=== PATIENT | male | born 1930 | race Caucasian/White ===

== ENCOUNTER 2016-04-23 18:45 | Emergency (ER) | payer MEDICARE, OTHER ==
[2016-04-23 18:46] VITALS: BMI 23.6
[2016-04-23 19:06] VITALS: TEMP 98.2
[2016-04-23] MEDS ORDERED: Albuterol/Ipratropium Neb 3 ML NEB NEB ONE ×2 (19:23→22:20)
[2016-04-23] MEDS ORDERED: METHYLPREDNISOLONE 125 MG/2 ML VIAL IV ONE (19:24)
[2016-04-23 19:53] LABS: AUTOMATED BASOPHIL 0.8 % (0-2); AUTOMATED EOSINOPHIL 4.3 % (0-5); AUTOMATED LYMPH 8.7 % (17-44); AUTOMATED MONOCYTE 10.2 % (3-10); MPV 8.3 fL (7.4-10.4)
[2016-04-23 19:57] LABS: BLOOD UREA NITROGEN 24 MG/DL (9-20); CALCIUM 9.1 MG/DL (8.4-10.2); CALCULATED OSMOLALITY 274 MOs/Kg (270-290); CHLORIDE 100 mEq/L (98-107); GLUCOSE 131 MG/DL (70-99); SODIUM LEVEL 139 mEq/L (137-146)
[2016-04-23 19:58] LABS: TOTAL PROTEIN 7.2 G/DL (6.3-8.2)
--- NOTE | 2016-04-23 20:12 | EDPRACDOC ---
- History of Present Illness HPI: NOTE SEEN AND EXAMINED; WEARS OXYGEN AT NIGHT; FEELS BETTER AFTER NEB <Jann Morgan - Last Filed: 04/23/16 21:59> - General Information Information Source: Patient Mode Of Arrival: Ambulance - History of Present Illness HPI: C/o sob, wheezing [employer]. Pt cannot answer any questions spoken or written. NO hx of sx available. Shortness of Breath: Mild <Donnie Conway - Last Filed: 04/24/16 06:38> - General Information Chief Complaint: Dyspnea/Resp distress Stated Complaint: BREATHING PROBLEMS Time Seen by Provider: 04/23/16 19:50 Home Medications: Home Medications Amlodipine [Norvasc] 10 mg PO DAILY 02/17/13 Citalopram (anti-depressant) [Celexa] 10 mg PO HS 03/10/14 Multivitamin [Multiple Vitamins] 1 tab PO DAILY 04/06/14 Omeprazole [Prilosec] 40 mg PO DAILY 04/06/14 Albuterol/Ipratropium Neb [Duoneb] 3 ml NEB QID 06/16/14 Aspirin [Aspirin EC] 81 mg PO DAILY #90 tablet. 06/23/14 Guaifenesin [Mucinex] 1,200 mg PO BID #30 tbmp.12hr 06/23/14 Acetaminophen [Mapap] 1,000 mg PO Q4H PRN 03/25/15 Albuterol/Ipratropium Neb [Duoneb] 3 ml NEB Q2H PRN 03/25/15 Aspirin (OrangeEnteric Coated) [Ecotrin] 325 mg PO . DIRECTED PRN 03/25/15 Dimethicone/Zinc Oxide [Mag Protect Cream] 1 raulito TOP Q2H PRN 03/25/15 Guaifenesin [Q-Tussin] 10 ml PO Q6H PRN 03/25/15 Hydrocortisone/Aloe Vera [Hydrocortisone-Aloe 0.5% Cream] 1 raulito TOP Q6H PRN 08/04 Loperamide HCl [Imodium] 2 mg PO Q6H PRN 03/25/15 Magnesium Hydroxide [Milk of Magnesia] 30 ml PO DAILY PRN 03/25/15 Magnesium Hydroxide/Al Hydrox [Mylanta Liquid] 30 ml PO Q6H PRN 03/25/15 Montelukast Sodium [Singulair] 10 mg PO QHS 03/25/15 Neomy Sulf/Bacitrac Zn/Poly [Triple Antibiotic Ointment] 1 raulito TP Q12H PRN 03/25 Fluticasone/Vilanterol [Breo Ellipta 200-25 Mcg INH] 1 puff INH DAILY 12/07/15 Loratadine [Claritin] 10 mg PO DAILY 12/07/15 Nystatin 2 gm TOP BID PRN 04/23/16 Prednisone [Deltasone, Orasone] 40 mg PO DAILY 5 Days 04/23/16 Allergies/Adverse Reactions: Allergies Allergy/AdvReac Type Severity Reaction Status Date / Time No Known Allergies Allergy Verified 03/25/15 11:44 - Treatment Prior to ED Arrival Reported Medications/Treatment [employer] Meds/Treatments Given Neb Treatment(Albuterol) EMS Treatment ALS,EKG <Jann Morgan - Last Filed: 04/23/16 21:59> - Treatment Prior to ED Arrival Reported Medications/Treatment [employer] Meds/Treatments Given Neb Treatment(Albuterol) EMS Treatment ALS,EKG <Donnie Conway - Last Filed: 04/24/16 06:38> ED Past Medical History - History Reviewed Yes Nurses notes reviewed and agree except as marked - Patient Medical History Neurological History: Reports: Cerebrovascular Accident, Dementia. Denies: Seizures, Migraine Cardiac History: Reports: Hypertension. Denies: Coronary Artery Disease, Atrial Fibrillation, Congestive Heart Failure, Heart Attack, Cardiac Catheterization, CABG, Stress Test, Hypercholesterolemia, Internal Defibrillator , Pacemaker, Cardiomyopathy, Valvular Heart Disease, Syncope Respiratory History: Reports: Aspiration Pneumonia. Denies: Asthma, COPD, Bronchitis, Asbestosis, Cough, Chronic Bronchitis, Pneumonia, Emphysema, Pulmonary Embolism GI/ History: Reports: Gastroesophageal Reflux. Denies: Renal Disease, Renal Failure, Renal (Kidney) Cancer, Kidney (Renal Surgery), Urinary Tract Infection , Kidney Stones, Liver Failure, Ulcer, IBD, Diverticulosis, Pancreatitis Musculoskeletal History: Reports: Arthritis, Osteoarthritis (Noted on C-spine CAT scan). Denies: Gout, Rheumatoid Arthritis Psychological History: Denies: Depression, Anxiety, Schizophrenia, Bipolar Disorder, Substance Use Disorder Systemic History: Denies: Cancer, Anemia, Diabetes, Hyperthyroidism, Hypothyroidism, HIV, Lupus Surgical History: Denies: CABG, Cardiac Catheterization - Family Medical History Reports: Hypertension (mother), Stroke (mother) - Social Medical History Smoking Status: Former smoker Social History: Denies: Substance Use Disorder <ManDonnie - Last Filed: 04/24/16 06:38> EDM Review of Systems - Review of Systems ROS Negative Except as Marked: Yes All systems reviewed and were negative except as marked Respiratory: Shortness of Breath <Donnie Conway - Last Filed: 04/24/16 06:38> - Physical Exam Last recorded Vital Signs: Last Vital Signs Temp 98.2 F 04/23/16 19:03 Pulse 73 04/23/16 19:03 Resp 27 H 04/23/16 19:03 BP 160/69 04/23/16 19:03 Pulse Ox 88 L 04/23/16 19:03 Oxygen Pulse Oxygen Saturation 88 O2 Device Room Air Oxygen Flow Rate Fraction of Inspired Oxygen ( FIO2) <Jann Morgan - Last Filed: 04/23/16 21:59> - Physical Exam Constitutional: Alert Oriented to: Person Last recorded Vital Signs: Last Vital Signs Temp 98.2 F 04/23/16 19:03 Pulse 73 04/23/16 19:03 Resp 27 H 04/23/16 19:03 BP 160/69 04/23/16 19:03 Pulse Ox 88 L 04/23/16 19:03 Oxygen Pulse Oxygen Saturation 88 O2 Device Room Air Oxygen Flow Rate Fraction of Inspired Oxygen ( FIO2) Exam: mild work of breathing - HEENT Head: Normal Eye Exam: negative: Conjunctival Injection, Scleral Icterus Oropharynx: negative: Drooling TMJ: Normal Neck: Normal - Respiratory/Cardiovascular Respiratory: Wheezes (bilaterally) Cardiovascular: Normal - GI Tenderness: Non tender - Musculoskeletal Back: Normal Extremities: Normal - Integumentary Skin: Normal <Donnie Conway - Last Filed: 04/24/16 06:38> ED SOB MDM - Results Result Diagrams: 04/23/16 19:30 04/23/16 19:30 Results: WBC 8.1 xk/uL (3.8-10.8) 04/23/16 19:30 RBC 5.11 xM/uL (4.70-6.10) 04/23/16 19:30 Hgb 15.0 g/dL (14.0-18.0) 04/23/16 19:30 Hct 44.5 % (42-52) 04/23/16 19:30 MCV 87 fL (80-94) 04/23/16 19:30 MCH 29.3 pg (27-32) 04/23/16 19:30 MCHC 33.7 g/dl (33-36) 04/23/16 19:30 RDW 14.1 % (11.5-14.5) 04/23/16 19:30 Plt Count 137 xk/uL (130-400) 04/23/16 19:30 MPV 8.3 fL (7.4-10.4) 04/23/16 19:30 Neut % (Auto) 76.0 % (45-76) 04/23/16 19:30 Lymph % (Auto) 8.7 % (17-44) L 04/23/16 19:30 Saunders % (Auto) 10.2 % (3-10) H 04/23/16 19:30 Eos % (Auto) 4.3 % (0-5) 04/23/16 19:30 Baso % (Auto) 0.8 % (0-2) 04/23/16 19:30 Absolute Neuts (auto) 6.16 xk/uL (1.7-8.2) 04/23/16 19:30 Absolute Lymphs (auto) 0.65 xk/uL (0.65-4.75) 04/23/16 19:30 Puncture Site Left radial 04/23/16 21:48 pH 7.430 pH UNITS (7.35-7.45) 04/23/16 21:48 pCO2 39.0 mmHg (35-45) 04/23/16 21:48 pO2 58.0 mmHg (80-100) L 04/23/16 21:48 HCO3 25.9 MMOL/L (22-26) 04/23/16 21:48 Total CO2 27.1 MMOL/L (23-27) H 04/23/16 21:48 Base Excess 1.5 (+/- 2) 04/23/16 21:48 FiO2 % 21% 04/23/16 21:48 Specimen Drawn By Umer 04/23/16 21:48 Sodium 139 mEq/L (137-146) 04/23/16 19:30 Potassium 4.7 mEq/L (3.5-5.1) 04/23/16 19:30 Chloride 100 mEq/L (98-107) 04/23/16 19:30 Carbon Dioxide 29 mMOL/L (22-33) 04/23/16 19:30 Anion Gap 15 mEq/L (8-16) 04/23/16 19:30 BUN 24 MG/DL (9-20) H 04/23/16 19:30 Creatinine 1.00 MG/DL (0.66-1.25) 04/23/16 19:30 Estimated GFR (MDRD) > 60 mL/min (>=60) 04/23/16 19:30 Glucose 131 MG/DL (70-99) H 04/23/16 19:30 Calculated Osmolality 274 MOs/Kg (270-290) 04/23/16 19:30 Calcium 9.1 MG/DL (8.4-10.2) 04/23/16 19:30 Total Bilirubin 1.2 MG/DL (0.2-1.3) 04/23/16 19:30 AST 24 IU/L (17-59) 04/23/16 19:30 ALT 29 IU/L (21-72) 04/23/16 19:30 Alkaline Phosphatase 110 IU/L (50-160) 04/23/16 19:30 Total Protein 7.2 G/DL (6.3-8.2) 04/23/16 19:30 Albumin 4.0 G/DL (3.5-5.0) 04/23/16 19:30 Urine Color Yellow 04/23/16 21:11 Urine Clarity Sl cldy 04/23/16 21:11 Urine pH 5.0 (5.0-8.0) 04/23/16 21:11 Ur Specific [place] 1.025 (1.003-1.035) 04/23/16 21:11 Urine Protein 1+ (NEG/TRACE) H 04/23/16 21:11 Urine Glucose (UA) Neg (NEGATIVE) 04/23/16 21:11 Urine Ketones Neg (NEGATIVE) 04/23/16 21:11 Urine Occult Blood Neg (NEG/TRACE) 04/23/16 21:11 Urine Nitrite Neg (NEGATIVE) 04/23/16 21:11 Urine Bilirubin Neg (NEGATIVE) 04/23/16 21:11 Urine Urobilinogen <2.0 MG/DL (0-1) 04/23/16 21:11 Ur Leukocyte Esterase Neg (NEGATIVE) 04/23/16 21:11 Urine RBC 0-2 (0-2) 04/23/16 21:11 Urine WBC 2-5 (0-2) H 04/23/16 21:11 Ur Epithelial Cells Occ 04/23/16 21:11 Urine Bacteria 1+ (NEG/FEW) H 04/23/16 21:11 Hyaline Casts 0-2 (0-2) 04/23/16 21:11 Urine Mucus Sm amt (NEG/OCC) 04/23/16 21:11 Lab Results 04/23/16 04/23/16 04/23/16 21:48 21:11 19:30 WBC 8.1 RBC 5.11 Hgb 15.0 Hct 44.5 MCV 87 MCH 29.3 MCHC 33.7 RDW 14.1 Plt Count 137 MPV 8.3 Neut % (Auto) 76.0 Lymph % (Auto) 8.7 L Saunders % (Auto) 10.2 H Eos % (Auto) 4.3 Baso % (Auto) 0.8 Absolute Neuts (auto) 6.16 Absolute Lymphs (auto) 0.65 Puncture Site Left radial pH 7.430 pCO2 39.0 pO2 58.0 L HCO3 25.9 Total CO2 27.1 H Base Excess 1.5 FiO2 % 21% Specimen Drawn By Alhham Sodium Potassium Chloride Carbon Dioxide Anion Gap BUN Creatinine Estimated GFR (MDRD) Glucose Calculated Osmolality Calcium Total Bilirubin AST ALT Alkaline Phosphatase Total Protein Albumin Urine Color Yellow Urine Clarity Sl cldy Urine pH 5.0 Ur Specific [place] 1.025 Urine Protein 1+ H Urine Glucose (UA) Neg Urine Ketones Neg Urine Occult Blood Neg Urine Nitrite Neg Urine Bilirubin Neg Urine Urobilinogen <2.0 Ur Leukocyte Esterase Neg Urine RBC 0-2 Urine WBC 2-5 H Ur Epithelial Cells Occ Urine Bacteria 1+ H Hyaline Casts 0-2 Urine Mucus Sm amt 04/23/16 19:30 WBC RBC Hgb Hct MCV MCH MCHC RDW Plt Count MPV Neut % (Auto) Lymph % (Auto) Saunders % (Auto) Eos % (Auto) Baso % (Auto) Absolute Neuts (auto) Absolute Lymphs (auto) Puncture Site pH pCO2 pO2 HCO3 Total CO2 Base Excess FiO2 % Specimen Drawn By Sodium 139 Potassium 4.7 Chloride 100 Carbon Dioxide 29 Anion Gap 15 BUN 24 H Creatinine 1.00 Estimated GFR (MDRD) > 60 Glucose 131 H Calculated Osmolality 274 Calcium 9.1 Total Bilirubin 1.2 AST 24 ALT 29 Alkaline Phosphatase 110 Total Protein 7.2 Albumin 4.0 Urine Color Urine Clarity Urine pH Ur Specific [place] Urine Protein Urine Glucose (UA) Urine Ketones Urine Occult Blood Urine Nitrite Urine Bilirubin Urine Urobilinogen Ur Leukocyte Esterase Urine RBC Urine WBC Ur Epithelial Cells Urine Bacteria Hyaline Casts Urine Mucus <Jann Morgan - Last Filed: 04/23/16 21:59> - Results Result Diagrams: 04/23/16 19:30 04/23/16 19:30 Results: WBC 8.1 xk/uL (3.8-10.8) 04/23/16 19:30 RBC 5.11 xM/uL (4.70-6.10) 04/23/16 19:30 Hgb 15.0 g/dL (14.0-18.0) 04/23/16 19:30 Hct 44.5 % (42-52) 04/23/16 19:30 MCV 87 fL (80-94) 04/23/16 19:30 MCH 29.3 pg (27-32) 04/23/16 19:30 MCHC 33.7 g/dl (33-36) 04/23/16 19:30 RDW 14.1 % (11.5-14.5) 04/23/16 19:30 Plt Count 137 xk/uL (130-400) 04/23/16 19:30 MPV 8.3 fL (7.4-10.4) 04/23/16 19:30 Neut % (Auto) 76.0 % (45-76) 04/23/16 19:30 Lymph % (Auto) 8.7 % (17-44) L 04/23/16 19:30 Saunders % (Auto) 10.2 % (3-10) H 04/23/16 19:30 Eos % (Auto) 4.3 % (0-5) 04/23/16 19:30 Baso % (Auto) 0.8 % (0-2) 04/23/16 19:30 Absolute Neuts (auto) 6.16 xk/uL (1.7-8.2) 04/23/16 19:30 Absolute Lymphs (auto) 0.65 xk/uL (0.65-4.75) 04/23/16 19:30 Sodium 139 mEq/L (137-146) 04/23/16 19:30 Potassium 4.7 mEq/L (3.5-5.1) 04/23/16 19:30 Chloride 100 mEq/L (98-107) 04/23/16 19:30 Carbon Dioxide 29 mMOL/L (22-33) 04/23/16 19:30 Anion Gap 15 mEq/L (8-16) 04/23/16 19:30 BUN 24 MG/DL (9-20) H 04/23/16 19:30 Creatinine 1.00 MG/DL (0.66-1.25) 04/23/16 19:30 Estimated GFR (MDRD) > 60 mL/min (>=60) 04/23/16 19:30 Glucose 131 MG/DL (70-99) H 04/23/16 19:30 Calculated Osmolality 274 MOs/Kg (270-290) 04/23/16 19:30 Calcium 9.1 MG/DL (8.4-10.2) 04/23/16 19:30 Total Bilirubin 1.2 MG/DL (0.2-1.3) 04/23/16 19:30 AST 24 IU/L (17-59) 04/23/16 19:30 ALT 29 IU/L (21-72) 04/23/16 19:30 Alkaline Phosphatase 110 IU/L (50-160) 04/23/16 19:30 Total Protein 7.2 G/DL (6.3-8.2) 04/23/16 19:30 Albumin 4.0 G/DL (3.5-5.0) 04/23/16 19:30 Lab Results 04/23/16 04/23/16 19:30 19:30 WBC 8.1 RBC 5.11 Hgb 15.0 Hct 44.5 MCV 87 MCH 29.3 MCHC 33.7 RDW 14.1 Plt Count 137 MPV 8.3 Neut % (Auto) 76.0 Lymph % (Auto) 8.7 L Saunders % (Auto) 10.2 H Eos % (Auto) 4.3 Baso % (Auto) 0.8 Absolute Neuts (auto) 6.16 Absolute Lymphs (auto) 0.65 Sodium 139 Potassium 4.7 Chloride 100 Carbon Dioxide 29 Anion Gap 15 BUN 24 H Creatinine 1.00 Estimated GFR (MDRD) > 60 Glucose 131 H Calculated Osmolality 274 Calcium 9.1 Total Bilirubin 1.2 AST 24 ALT 29 Alkaline Phosphatase 110 Total Protein 7.2 Albumin 4.0 - Diagnostic Imaging Chest Image interpreted by: Radiologist Diagnostic Imaging Comments: EXAM: CHEST 2 VIEW COMPARISON: 12/07/2015 FINDINGS: Heart is mildly enlarged. Tortuous aorta. There are no focal consolidations or pleural effusions. Elevated left hemidiaphragm again noted. Mildly coarse interstitial markings appear stable. IMPRESSION: Cardiomegaly. No evidence for acute cardiopulmonary abnormality. Electronically Signed By: Zarina Wong M.D. On: 04/23/2016 20:35 - Additional Information Additional Information: Spoke with Yeimy Vazquez at [facility] who states pt can usually answer yes or no if he is paying attention and the question is written out. Has baseline wheezing, but was more "wheezy" than usual today and complained of chest pain today, also asked for more help yesterday. They are unaware of baseline O2 sats as they do not take them. Pt on O2 at night at 2L but often goes without the oxygen at night. Testicles are baseline swollen. <Donnie Conway - Last Filed: 04/24/16 06:38> <Jann Morgan - Last Filed: 04/23/16 21:59> Decision Time to Discharge: 23:01 - Departure Disposition: Detention Facility Education/Counseling Given To: Patient Education/Counseling Given Regarding: Diagnosis, Treatment, Prognosis, Follow Up <Donnie Conway - Last Filed: 04/24/16 06:38> - Departure Condition: Stable Final Diagnosis: COPD exacerbation Instructions: Urinary Tract Infection in Men (ED), Dysuria Referrals: Jose Antonio Mack MD [Primary Care Provider] - One Week Prescriptions: Prednisone [Deltasone, Orasone] 40 mg PO DAILY 5 Days
--- NOTE | 2016-04-23 20:37 | DIRPT ---
CLINICAL DATA: Shortness of breath. Wheezing. EXAM: CHEST 2 VIEW COMPARISON: 12/07/2015 FINDINGS: Heart is mildly enlarged. Tortuous aorta. There are no focal consolidations or pleural effusions. Elevated left hemidiaphragm again noted. Mildly coarse interstitial markings appear stable. IMPRESSION: Cardiomegaly. No evidence for acute cardiopulmonary abnormality. Electronically Signed By: Zarina Wong M.D. On: 04/23/2016 20:35
[2016-04-23 21:22] LABS: LEUKOCYTES/URINE NEG (NEGATIVE); NITRITE/URINE NEG (NEGATIVE); RBC/URINE 0-2 (0-2); URINE OCCULT BLOOD NEG (NEG/TRACE)
[2016-04-23 21:52] LABS: ALLEN'S TEST PASS; BEb 1.5 (+/- 2); TCO2 27.1 MMOL/L (23-27)
[2016-04-23 21:53] LABS: ABG Draw Site Left Radial
[2016-04-23] MEDS ORDERED: CIPROFLOXACIN HCL 500 MG TAB PO ONE (22:36)
[2016-04-23 23:07] VITALS: BP 134/73; PULSE 78
== END 2016-04-23 23:20 | disposition short-term general hospital (02) ==
LOC: ED 18:45
DX: J44.1 Chronic obstructive pulmonary disease with (acute) exacerbation (principal)
CPT/HCPCS: 36415; 36600; 71020; 80053; 81001; 82803; 85025; 93005; 94640; 96374; 99283; A9270; J2930; J7620; J3490